=== PATIENT | male | born 1980 | race Caucasian/White ===

== ENCOUNTER 2017-07-07 20:17 | Emergency (ER) | payer MEDICARE, MEDICAID ==
[2017-07-07 20:37] VITALS: BP 118/98
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
== END 2017-07-07 22:26 | disposition home or self-care (01) ==
LOC: ED 20:17
DX: S00.93XA Contusion of unspecified part of head, initial encounter (principal); Y04.2XXA Assault by strike against or bumped into by another person, initial encounter; Y92.9 Unspecified place or not applicable; F84.0 Autistic disorder; E03.9 Hypothyroidism, unspecified; K21.9 Gastro-esophageal reflux disease without esophagitis; F41.9 Anxiety disorder, unspecified
CPT/HCPCS: 99282